=== PATIENT | female | born 1945 | race Caucasian/White ===

== ENCOUNTER 2017-10-13 09:24 | Day surgery (SDC) | payer MEDICARE, BC, OTHER ==
[2017-10-13] VITALS (19 sets, daily range): BP systolic 119–177; BP diastolic 44–93
[~2017-10-13] VITALS: Ht 162.6 cm; Wt 45.0 kg
[2017-10-13] MEDS ORDERED: normal saline 1000ml 1,000 ML IV PRN (09:45)
[2017-10-13] MEDS ORDERED: LEVO25TA7 PO (10:05)
[2017-10-13] MEDS ORDERED: MELO-102 PO (10:05)
[2017-10-13] MEDS ORDERED: HYDR200T84 PO (10:05)
[2017-10-13 10:10] LABS: BASOPHILS % (AUTO) 0.5 % (0-1); EOSINOPHILS # (AUTO) 0.1 X10'3 (0-0.9); EOSINOPHILS % (AUTO) 1.6 % (0-6); HEMATOCRIT 35.9 % (35.0-45.0); HEMOGLOBIN 12.5 g/dl (12.0-16.0); LYMPHOCYTES # (AUTO) 0.7 X10'3 (1.1-4.8); LYMPHOCYTES % (AUTO) 13.5 % (21-51); MEAN CORPUSCULAR HEMOGLOBIN 31.8 PG (27.0-31.0); MEAN CORPUSCULAR HGB CONC 34.7 % (33.0-36.5); MEAN CORPUSCULAR VOLUME 91.5 FL (78-98); MEAN PLATELET VOLUME 6.4 FL (7.4-10.4); MONOCYTES # (AUTO) 0.4 X10'3 (0-0.9); MONOCYTES % (AUTO) 7.8 % (2-12); NEUTROPHILS % (AUTO) 76.6 % (42-75); PLATELET COUNT 209 X10'3 (140-440); RED BLOOD COUNT 3.92 X10'6 (4.20-5.60); RED CELL DISTRIBUTION WIDTH 13.3 % (11.5-14.5); WHITE BLOOD COUNT 5.2 X10'3 (4.5-11.0)
[2017-10-13] MEDS ORDERED: ondansetron/PF 4mg/2ml inj IV PRN (10:20)
[2017-10-13] MEDS ORDERED: LIDOcaine 1%/PF 5ML 10 MG/ML VIAL ONE (10:40)
[2017-10-13] MEDS ORDERED: midazolam 2 mg/2 ml injection IV PRN (10:50)
[2017-10-13] MEDS ORDERED: fentaNYL/PF 50MCG/1 ML 2ML syringe IV PRN (10:50)
[2017-10-13] MEDS ORDERED: midazolam 2 mg/2 ml injection ONE (11:03)
[2017-10-13] MEDS ORDERED: fentaNYL/PF 50MCG/1 ML 2ML syringe ONE (11:03)
== END 2017-10-13 14:47 | disposition home or self-care (01) ==
LOC: SSTAY O 09:24
PROVIDERS: ATTEND Radiology Vascular & Interventional Radiology
DX: R91.1 Solitary pulmonary nodule (principal); J98.4 Other disorders of lung; I10 Essential (primary) hypertension; J44.9 Chronic obstructive pulmonary disease, unspecified; I25.10 Atherosclerotic heart disease of native coronary artery without angina pectoris; M06.9 Rheumatoid arthritis, unspecified; E03.9 Hypothyroidism, unspecified; Z85.21 Personal history of malignant neoplasm of larynx; Z87.891 Personal history of nicotine dependence; Z86.19 Personal history of other infectious and parasitic diseases; Z79.899 Other long term (current) drug therapy
CPT/HCPCS: 32405; 36415; 71045; 77012; 85025; 99152; 99153; J2001; J2250; J2405; J3010; J7030

== ENCOUNTER 2021-10-30 11:23 | Day surgery (SDC) | payer MEDICARE, BC, OTHER ==
[~2021-10-30] VITALS: Ht 165.1 cm; Wt 44.4 kg
--- NOTE | 2021-10-30 11:15 | NUR ---
Mary Jo OLIVEIRA at bedside for procedure. Pt tolerated well.
[~2021-10-30 11:23] MED LIST: HYDR200T84 PO; LEVO25TA7 PO; MELO-102 PO
[2021-10-30 11:58] VITALS: BP 139/75
== END 2021-10-30 11:30 | disposition home or self-care (01) ==
LOC: SSTAY O 11:23
PROVIDERS: ATTEND Preventive Medicine Aerospace Medicine
DX: Z43.1 Encounter for attention to gastrostomy (principal)
CPT/HCPCS: A6258; A6449; G0463